=== PATIENT | male | born 1975 | race African-American/Black ===

== ENCOUNTER 2016-09-13 17:17 | Emergency (ER) | payer OTHER ==
[2016-09-13 17:21] VITALS: BP 127/71
--- NOTE | 2016-09-13 18:36 | RADIOLOGY REPORT (SQ) ---
EXAM DESCRIPTION: HAND LEFT 2 VIEWS COMPLETED DATE/TIME: 09/13/2016 6:11 pm REASON FOR STUDY: r/o foreign body COMPARISON: None. EXAM PARAMETERS: NUMBER OF VIEWS: Three views. TECHNIQUE: AP, lateral and oblique radiographic images acquired of the left hand. LIMITATIONS: None. FINDINGS: MINERALIZATION: Normal. BONES: No acute fracture or dislocation. No worrisome bone lesions. JOINTS: No effusions. SOFT TISSUES: No radiopaque foreign body is seen. OTHER: No other significant finding. IMPRESSION: NEGATIVE STUDY OF THE LEFT HAND. NO RADIOGRAPHIC EVIDENCE OF ACUTE INJURY. TECHNICAL DOCUMENTATION: JOB ID: [id number] [employer]- All Rights Reserved
[2016-09-13] MEDS ORDERED: IBUPROFEN 600 MG TABLET PO ONE (18:49)
--- NOTE | 2016-09-13 18:49 | ER Document Report ---
ED Hand/Wrist Injury - General Chief Complaint: Hand Pain Stated Complaint: LACERATION TO LEFT HAND Time Seen by Provider: 09/13/16 17:52 TRAVEL OUTSIDE OF THE [place] IN LAST 30 DAYS: No - HPI Injury to: Hand - left hand at the base of his pinky on his palm c/o splinter in his hand from 8 days ago. Quality of pain: Sharp - with pinky extension - Related Data Allergies/Adverse Reactions: No Known Allergies Allergy (Unverified 09/13/16 17:20) Past Medical History - Social History Smoking Status: Unknown if Ever Smoked Family History: Reviewed & Not Pertinent Renal/ Medical History: Denies: Hx Peritoneal Dialysis Review of Systems - Review of Systems Constitutional: No symptoms reported Musculoskeletal: See HPI Skin: See HPI -: Yes All other systems reviewed and negative Physical Exam - Vital signs Vitals: Temp Pulse Resp BP Pulse Ox 98.5 F 111 H 16 127/71 H 98 09/13/16 17:21 09/13/16 17:21 09/13/16 17:21 09/13/16 17:21 09/13/16 17:21 - General General appearance: Appears well, Alert In distress: None - Cardiovascular Pulses: Normal: Radial Normal capillary refill: Yes - Extremities Forearm: Normal Wrist: Normal Hand: Normal, Other - pain with pinky extension - Skin Skin Temperature: Warm Skin Moisture: Dry Skin Color: Normal Skin Turgor: Elastic Skin irregularity: other - healing laceration on the palmar aspect on the left palmar surface at the base of the pinky without erythema, induration, tenderness or drainage Course - Re-evaluation Re-evalutation: 09/13/16 19:20 41-year-old male without any evidence of foreign body or fracture at the base of the pinky. No concerns for infection. Patient was diagnosed with finger extension. Stable for discharge home. - Vital Signs Vital signs: Temp Pulse Resp BP Pulse Ox 98.5 F 111 H 16 127/71 H 98 09/13/16 17:21 09/13/16 17:21 09/13/16 17:21 09/13/16 17:21 09/13/16 17:21 - Diagnostic Test Radiology reviewed: Image reviewed, Reports reviewed Discharge - Discharge Clinical Impression: Hand pain Qualifiers: Laterality: left Qualified Code(s): M79.642 - Pain in left hand Condition: Good Disposition: HOME, SELF-CARE Instructions: Sprained Finger ([facility]), Use of [id number] Ibuprofen ([facility])
== END 2016-09-13 19:05 | disposition home or self-care (01) ==
LOC: ER 17:17
DX: S60.552A Superficial foreign body of left hand, initial encounter (principal); M79.642 Pain in left hand; Y93.9 Activity, unspecified; W45.8XXA Other foreign body or object entering through skin, initial encounter
CPT/HCPCS: 99283